=== PATIENT | female | born 1980 | race African-American/Black ===

== ENCOUNTER 2017-02-13 19:19 | Emergency (ER) | payer SELFPAY ==
[~2017-02-13] VITALS: Ht 157.5 cm; Wt 63.5 kg
[~2017-02-13 19:19] MED LIST: CYCL10TA2 PO; NAPR250T2 PO
[2017-02-13 20:11] VITALS: BP 143/81
[2017-02-13] MEDS ORDERED: NAPROXEN 500 MG TABLET PO ONE (22:00)
[2017-02-13] MEDS ORDERED: NAPR375T3 PO (22:23)
--- NOTE | 2017-02-13 22:23 | PHYS DOC ---
Past Medical History Past Medical History: No Pertinent History Past Surgical History: Alcohol Use: Occasionally Drug Use: None Adult General Chief Complaint Chief Complaint: LOWER EXT PAIN HPI HPI Patient is a 36 year old female who presents with L foot pain. Patient reports that since yesterday she has been having pain in the top of her L foot. No trauma or other clear inciting event. She also feels as if there is bump on her foot where the pain is located. Patient has taken ibuprofen for pain with insufficient relief. No other acute complaints. No prior similar episodes. Review of Systems Review of Systems Constitutional: Denies fever or chills Respiratory: Denies cough or shortness of breath Cardiovascular: Denies chest pain GI: Denies abdominal pain, nausea, vomiting, or diarrhea Musculoskeletal: L foot pain and bump Neurologic: Denies headache, focal weakness or sensory changes Current Medications Current Medications Current Medications Medications (Trade) Dose Ordered Sig/Tara Start Time Stop Time Status Last Admin Dose Admin Naproxen (Naprosyn) 500 mg 1X ONCE 02/13/17 22:00 02/13/17 22:01 DC 02/13/17 22:22 500 MG Allergies Allergies Allergies Coded Allergies Type Severity Reaction Last Updated Verified Penicillins Allergy Intermediate Rash 02/13/17 No Physical Exam Physical Exam Constitutional: Well developed, well nourished, no acute distress, non-toxic appearance HENT: Normocephalic, atraumatic Eyes: EOMI, conjunctiva normal, no discharge Neck: No stridor Pulmonary: No respiratory distress Skin: Warm, dry Neurologic: Alert and oriented X 3 Musculoskeletal: L foot visually unremarkable compared to R, no erythema, swelling, warmth to touch; TTP over head of 5th metatarsal (which appears to be bump patient is describing - symmetrical to R foot); 2+ DP pulse, motor function and sensation to light touch fully intact Current Patient Data Vital Signs Vital Signs Date Time Temp Pulse Resp B/P Pulse Ox O2 Delivery O2 Flow Rate FiO2 02/13/17 20:11 96.5 72 18 99 Room Air 96.5 EKG EKG [] Radiology/Procedures Radiology/Procedures X-ray L foot (my read): No acute bony abnormality Course & Med Decision Making Course & Med Decision Making Pertinent Labs and Imaging studies reviewed. (See chart for details) Patient is 36 year old female who presents with L foot pain. 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 Bump that patient feels appears to simply be head of 5th metatarsal. Dose of naproxen ordered for pain control. X- ray of L foot ordered to evaluate, no acute abnormality per my read. Discussed results with patient as well as symptomatic management. Will discharge with rx for naproxen, instructions for follow up, return precautions. Dragon Disclaimer Dragon Disclaimer This electronic medical record was generated, in whole or in part, using a voice recognition dictation system. Departure Departure Impression: Primary Impression: Left foot pain Disposition: HOME, SELF-CARE Condition: STABLE Referrals: NADEEM SCOTT MD (PCP) Patient Instructions: Foot Sprain Additional Instructions: Thank you for allowing us to provide care today in the Emergency Department. Take the provided medication as directed. Rest your foot as much as you are able. Ice the affected area after you have been on your feet a lot as we discussed. Schedule a follow up appointment with your primary care doctor. Return promptly to the Emergency Department if you develop any new or concerning symptoms. Scripts Naproxen 375 Mg [id number] Mg PO BID #20 Prov:RUTH ALBARRAN MD 02/13/17 RUTH ALBARRAN MD Feb 13, 2017 22:23
--- NOTE | 2017-02-14 09:55 | RAD ---
Portable left foot, 3 views, 02/13/2017: History: Left foot pain No fracture or or dislocation is identified. A small sclerotic focus in the proximal first metatarsal is compatible with a bone island. IMPRESSION: No acute left foot abnormality is detected.
== END 2017-02-13 22:30 | disposition home or self-care (01) ==
LOC: ER 19:19
DX: M79.672 Pain in left foot (principal); Z88.0 Allergy status to penicillin
CPT/HCPCS: 73630; 99284

== ENCOUNTER 2019-08-02 15:55 | Emergency (ER) | payer BC ==
[~2019-08-02] VITALS: Ht 157.5 cm; Wt 67.6 kg
[~2019-08-02 15:55] MED LIST changes: +NAPR-695 PO; -NAPR250T2 PO; +NAPR250T6 PO
[2019-08-02 16:08] VITALS: BP 145/101
[2019-08-02] MEDS ORDERED: ONDA4TAB7 PO (16:27)
[2019-08-02] MEDS ORDERED: SUMA50TA3 PO (16:27)
--- NOTE | 2019-08-02 16:27 | PHYS DOC ---
Past Medical History Past Medical History: No Pertinent History Past Surgical History: Alcohol Use: Occasionally Drug Use: None Adult General Chief Complaint Chief Complaint: HEADACHE HPI HPI Patient is a 38 year old female who presents to the ED today stating last week she had pinkeye as well as an upper respiratory infection. She states she was started on Cipro and pinkeye eyedrops. She states she's been taking the medications and is still on Cipro right now. She states today she realized she has a headache, she states the headache is on the right side and is intermitt ent, she rates the headache as mild. She states she has some nausea but no vomiting. She states she's had similar headaches before but does not have an official diagnosis for migraine headaches. She is also complaining of a bump on the left side of her face that she noted yesterday. Patient denies any fever, drainage from this area. Denies any cough or congestion. She states her pinkeye has subsided. Denies any chest pain. Denies any shortness of breath. Review of Systems Review of Systems Constitutional: Denies fever or chills [] Eyes: Denies change in visual acuity, redness, or eye pain [] HENT: Denies nasal congestion or sore throat [] Respiratory: Denies cough or shortness of breath [] Cardiovascular: No additional information not addressed in HPI [] GI: Denies abdominal pain, nausea, vomiting, bloody stools or diarrhea [] : Denies dysuria or hematuria [] Musculoskeletal: Denies back pain or joint pain [] Integument: Reports not on the left side of the face Neurologic: Reports headache, denies focal weakness or sensory changes [] All other systems were reviewed and found to be within normal limits, except as documented in this note. Allergies Allergies Allergies Coded Allergies Type Severity Reaction Last Updated Verified Penicillins Allergy Intermediate Rash 02/13/17 No Physical Exam Physical Exam Constitutional: Well developed, well nourished, no acute distress, non-toxic appearance. [] HENT: Normocephalic, atraumatic, bilateral external ears normal, oropharynx moist, no oral exudates, nose normal. [] Eyes: PERRLA, EOMI, conjunctiva normal, no discharge. [] Neck: Normal range of motion, no tenderness, supple, no stridor. [] Cardiovascular:Heart rate regular rhythm, no murmur [] Lungs & Thorax: Bilateral breath sounds clear to auscultation [] Abdomen: Bowel sounds normal, soft, no tenderness, no masses, no pulsatile masses. [] Skin: Warm, dry, left temporal region with an indurated area approximately 0.5 x 0.5 cm with no erythema, no drainage, no fluctuance, no signs of infection. Back: No tenderness, no CVA tenderness. [] Extremities: No tenderness, no cyanosis, no clubbing, ROM intact, no edema. [] Neurologic: Alert and oriented X 3, normal motor function, normal sensory function, no focal deficits noted. Cranial nerves II through XII intact Psychologic: Affect normal, judgement normal, mood normal. [] Current Patient Data Vital Signs Vital Signs Date Time Temp Pulse Resp B/P (MAP) Pulse Ox O2 Delivery O2 Flow Rate FiO2 08/02/19 16:08 97.9 62 12 145/101 (116) 100 Room Air 97.9 EKG EKG [] Radiology/Procedures Radiology/Procedures [] Course & Med Decision Making Course & Med Decision Making Pertinent Labs and Imaging studies reviewed. (See chart for details) This is a 38-year-old female patient who presents to the ED today complaining of a headache since this morning, no fevers. Denies this being the worst headache in her life. Has history of similar headaches. Was discharged with Imitrex for h er headaches as well as Zofran for nausea. She is also complaining of a knot on the left side of the face, she is currently on Cipro, the knot does not appear infected. Encouraged her to complete the Cipro. Encouraged to follow-up with her PCP. Tetanus is up-to-date Dragon Disclaimer Dragon Disclaimer This electronic medical record was generated, in whole or in part, using a voice recognition dictation system. Departure Departure Impression: Primary Impression: Headache Disposition: 01 HOME, SELF-CARE Condition: STABLE Referrals: UNKNOWN PCP NAME (PCP) follow up with your doctor in one week Patient Instructions: Headache, FAQs Additional Instructions: Please continue taking antibiotics until completed Please take the prescribed Imitrex as needed for headache Please take the prescribed Zofran as needed for nausea or vomiting Please follow-up with your primary care doctor in the next 1-2 weeks Scripts Ondansetron Hcl (ZOFRAN) 4 Mg Tablet 1 TAB PO Q6HRS, #20 TAB Prov: BRUCE ROMERO APRN 08/02/19 Sumatriptan Succinate (IMITREX) 50 Mg Tablet 1 TAB PO UD, #9 TAB 1 Refill Take 1 tablet at the onset of headache, repeat 1 tablet in 2 hours if pain persist. Please do not take more than 2 tablets in 24 hours Prov: BRUCE ROMERO APRN 08/02/19 Problem Qualifiers Primary Impression: Headache Headache type: unspecified Headache chronicity pattern: unspecified pattern Intractability: not intractable Qualified Codes: R51 - Headache BRUCE ROMERO APRN Aug 02, 2019 16:27
== END 2019-08-02 16:30 | disposition home or self-care (01) ==
LOC: ER 15:55
DX: R51 Headache (principal); R11.0 Nausea; Z88.0 Allergy status to penicillin
CPT/HCPCS: 99283